=== PATIENT | female | born 1935 | race Caucasian/White ===

== ENCOUNTER 2019-11-18 16:59 | Emergency (ER) | payer MEDICARE, SELFPAY ==
[2019-11-18 17:06] VITALS: BP 174/88; PULSE 77; RESP 18; TEMP 36.8; O2SAT 93; BMI 33.6
--- NOTE | 2019-11-18 17:22 | CTR_ITS ---
PROCEDURE INFORMATION: Exam: CT Cervical Spine Without Contrast Exam date and time: 11/18/2019 5:38 PM Age: 84 years old Clinical indication: Neck pain; Additional info: Severe left sided neck pain, sudden onset TECHNIQUE: Imaging protocol: Computed tomography images of the cervical spine without contrast. Radiation optimization: All CT scans at this facility use at least one of these dose optimization techniques: automated exposure control; mA and/or kV adjustment per patient size (includes targeted exams where dose is matched to clinical indication); or iterative reconstruction. COMPARISON: No relevant prior studies available. FINDINGS: There is mild multilevel malalignment, likely secondary to degenerative changes. Height of cervical bodies appears within normal limits. Reversal of the lordosis may be due to muscle spasm. There are prominent multilevel degenerative changes in the cervical spine. There appears to be spinal canal narrowing. Further assessment cannot be made of the cervical spinal canal or its contents due to artifacts. No convincing acute fracure is demonstrated when allowing for the degenerative changes. Consider MRI of cervical spine for further assessment if clinically warranted, particularly for further assessment of the spinal canal and its contents, spinal cord, nerve roots, intervertebral disks, ligaments, other spinal soft tissues, bone edema, etc., if patient has no contraindication to MRI. There are prominent calcifications at each CCA bifurcation, consider further imaging to assess for carotid stenosis. There are rounded somewhat low-density lesions in bilateral thyroid lobes, largest is on left and measures about 1.6 cm. There is approximately 3 mm noncalcified nodule in right upper lobe. Followup according to Fleischner Society guidelines is advised. CT/CT cervical spin wo con* 98417 IMPRESSION: No convincing acute fracture is demonstrated when allowing for prominent degenerative changes as discussed above. There are rounded somewhat low-density lesions in bilateral thyroid lobes, largest is on left and measures about 1.6 cm. Nonemergent thyroid ultrasound is advised for further assessment. Other findings as discussed above. Total DLP: 790.88 mGy-cm Radiation Dose CTDIVOL = (mGy): DLP = 790.88 (mGy-cm)
--- NOTE | 2019-11-18 17:38 | ED_ITS ---
HPI - Headache General: Chief Complaint: Headache Stated Complaint: neck pain Time Seen by Provider: 11/18/19 17:22 History of Present Illness: HPI Narrative: Patient states she woke up 2 days ago with neck pain that is progressively got worse hurts in her left neck trapezius area and now she has a headache along with that she is very active she is on for sure what happened her neck she does have a history of arthritis in her neck MD elicited complaint: headache and other (Neck pain) Onset description: on awakening Location: left Severity: moderate Quality & Timing: aching (Spasm), sharp and intermittent Exacerbating factors: movement of head/neck Context: tick bite (History Lyme disease 3 years ago) Associated symptoms: Reports no associated symptoms; Deny chest pain, fever(s), nausea, rash or vomiting Treatments prior to arrival: none Review of Systems Const: Denies: fever(s), chills or body aches Eyes: Denies: change in vision or blurry vision ENMT: Denies: throat pain or nasal congestion Card: Denies: chest pain or dyspnea on exertion Resp: Denies: dyspnea, productive cough or non-productive cough GI: Denies: abdominal pain, nausea or vomiting Musc: Reports: neck pain; Denies: extremity pain Skin/Breast: Denies: rash Neuro: Reports: headache(s) Psych: Denies: anxiety or depression Pipo/Lymph: Denies: easy bruising PFSH ED PFSH: Social History Smoking and tobacco status: never smoked Physical Exam Const: COMMON NORMALS: patient oriented x3 HENMT: COMMON NORMALS: normocephalic HEAD & SCALP: normal to inspection and normocephalic FACE & SINUS: normal facial exam Eye: COMMON NORMALS: conjunctivae normal GENERAL EYE: appearance normal, tony th eyes and all related structures CONJUNCTIVA: Yes conjunctivae normal Neck/C-Spine: COMMON NORMALS: no JVD; negative for full ROM OTHER: Patient has tenderness to the left trans-PCS from the base of the neck toward her left shoulder does not hurt down to the lower part of the shoulder blade is tight patient has limited range of motion due to pain Chest: COMMONS NORMALS: normal inspection of the chest Resp: COMMON NORMALS: normal respiratory effort and clear to auscultation bilaterally AUSCULTATION: clear to auscultation bilaterally Cardio: COMMON NORMALS: no JVD, regular rate and regular rhythm RATE: regular rate RHYTHM: regular rhythm GI: COMMON NORMALS: Normal to inspection, nondistended, normoactive bowel soun ds present Extremity: COMMON NORMALS: normal to inspection and full ROM Neuro: COMMON NORMALS: patient oriented x3 Course Vital Signs: Vital signs: Vital Signs Temperature 98.3 F 11/18/19 17:06 Pulse Rate 70 11/18/19 17:47 Respiratory Rate 14 11/18/19 17:47 Blood Pressure 169/84 11/18/19 17:47 Pulse Oximetry 95 11/18/19 17:47 MDM - Headache MDM Narrative: Medical decision making narrative: Patient neck pain is improved not completely gone she is able to put her hand behind her head and pull up her head to the sitting position with minimal pain now and she cannot do this before Discharge Plan Discharge Patient Disposition: Home, Self-Care Clinical Impression: Neck pain, chronic Condition: Stable Prescriptions: New tizanidine 2 mg capsule 2 mg PO Q8H PRN (Reason: muscle spasticity) Qty: 14 RF: 0 prednisone 10 mg tablet 10 mg PO DAILY 7 Days Qty: 7 RF: 0 Discharge Orders: Discharge Order (Routine); Ordered 11/18/19 Ordered By: Nils Gamble Referrals: KAREY [Other] Jeff Allen [Primary Care Provider] - Discharge Diet: Usual diet Discharge Activity: Increase activity as tolerated Patient Instructions: Osteoarthritis (ED) Activity Restrictions/Additional Instructions: Follow-up with medical provider as directed. Take medications as prescribed. Return to the ER or your medical provider if condition worsens. Please read and understand discharge instructions. If any questions ask please. Follow-up with Dr. 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
[2019-11-18] MEDS: orphenadrine 30 mg/mL Inj 2 mL 60 MG IM (17:40)
[2019-11-18] MEDS: ketorolac 60 mg/2 mL INJ IM (17:40)
[2019-11-18 17:47] VITALS: BP 169/84; PULSE 70; RESP 14; O2SAT 95
[2019-11-18 18:55] VITALS: BP 153/84; PULSE 62; RESP 16; O2SAT 97
== END 2019-11-18 19:04 | disposition home or self-care (01) ==
PROVIDERS: Emergency Provider Nurse Practitioner Family; PCP Physician Assistant
DX: G89.29 Other chronic pain (principal); M54.2 Cervicalgia
CPT/HCPCS: 12345; 72125; 96372; 99281; 99283; J1885; J2360

== ENCOUNTER → 2020-03-25 15:22 | Outpatient (BNVA) | payer MEDICARE, SELFPAY | PROVIDERS: PCP Physician Assistant; Visit Provider Nurse Practitioner Family | DX: N39.0 Urinary tract infection, site not specified (principal) | CPT/HCPCS: 81001 ==

== ENCOUNTER 2021-01-27 13:54 | Outpatient (CLI) | payer MEDICARE, SELFPAY ==
--- NOTE | 2021-01-27 14:09 | XR_ITS ---
WS: [id number] PROCEDURE: XR chest 2V* [id number] CLINICAL INFORMATION: COUGH COMPARISON: FINDINGS: Heart: Cardiomegaly. Aortic calcification. Tortuous thoracic aorta. Lungs: Moderate chronic emphysematous changes. No acute pulmonary infiltrates. No focal pneumonia. Bones: Mild thoracic curve. Moderate thoracic kyphosis. Chronic anterior wedging in the mid thoracic spine. Vascular calcification. XR/XR chest 2V* [id number] IMPRESSION: 1. Moderate chronic emphysematous changes. No acute pulmonary infiltrates. No focal pneumonia. 2. Stable cardiomegaly. 3. Moderate thoracic kyphosis with chronic anterior wedging in the mid thoraci c spine.
== END 2021-01-27 13:55 | disposition home or self-care (01) ==
PROVIDERS: Visit Provider Specialist
DX: R05 Cough (principal); I51.7 Cardiomegaly; M40.204 Unspecified kyphosis, thoracic region
CPT/HCPCS: 71046

== ENCOUNTER 2021-03-16 13:06 | Outpatient (CLI) | payer MEDICARE, SELFPAY ==
[2021-03-16 14:02] LABS: Basophils % 0.2 %; Eosinophils # 0.1 10^3/uL (0.0-0.8); Eosinophils % 1.9 %; Hematocrit 36.4 % (37.0-47.0); Hemoglobin 11.8 g/dL (11.5-15.3); Lymphocytes # 1.9 10^3/uL (0.8-4.8); Lymphocytes % 40.5 %; Mean Corpuscular HGB Conc 32.4 g/dL (30.0-36.0); Mean Corpuscular Hemoglobin 32.5 pg (28.0-34.0); Mean Corpuscular Volume 100.3 fl (81-99); Monocytes # 0.7 10^3/uL (0.2-0.9); Monocytes % 15.8 %; Neutrophils # 1.93 10^3/uL (1.8-7.7); Neutrophils % 41.4 %; Nucleated Red Blood Cells % 0 %; Platelet Count 97 10^3/cmm (130-400); Red Blood Count 3.63 10^6/uL (4.1-5.3); Red Cell Distribution Width 12.9 % (12.1-15.1); White Blood Count 4.7 10^3/uL (4.0-10.0)
[2021-03-16 15:30] LABS: Slide Review Slide Review Perform
--- NOTE | 2021-03-16 17:19 | ONC CON_ITS ---
Dr. Birmingham New Patient Note Patient: Ritu Stoner Unit #: [id number]: 1935 Dicatated By: Chela Birmingham M.D.Date of Visit: Mar 16, 2021 Onc MED New Patient/Consult Referring Physician: Jeff Allen P.A.-C History of Present Illness: Mr. Ritu Stoner, is a 85-year-old female with a history of thrombocytopenia and mild anemia since 2016 when patient was admitted to hospital in ICU, at that time she was seen by Dr. 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 Her lab work-up done recently on December 27, 2020 showed iron 76, TIBC 178, iron saturation 43% ferritin 524 creatinine 1.10 otherwise CMP within normal limits white blood count 3.1 hemoglobin 11 g hematocrit 34 platelets 24,000, patient was referred to hematology clinic for evaluation Patient denied any night sweats, peripheral lymphadenopathy, abdominal fullness, weight loss, recurrent fever, patient denies any nosebleed or gum bleed, denies any particular ecchymosis denies any melena hematochezia or hemoptysis or hematemesis, denies any jaundice, denies any peripheral neuropathy/numbness,Denies any recent blood transfusion, Past Medical History: Ms. Stoner's medical history consists of anemia, ankylosing spondylitis, atrial fibrillation, benign proxysmal vertigo, cervicalgia, chronic cystitis, chronic pain, history of basal cell carcinoma left ear, history of Lyme disease, hypertension, hypokalemia, non toxic multinodular goiter, and Louis's disease. Past Surgical History: There is no documented surgical history. Medications: Aspirin 81 1 Tablet (of 81 mg) Tablet, enteric coated Oral daily, Atenolol 1 Tablet (of 100 mg) Oral at bedtime, Calcium 1 Tablet (of 600 mg) Oral daily, Cetirizine HCl 1 Tablet (of 10 mg) Oral daily, D3-1000 1 Tablet (of 25 mcg ) Oral daily, Daily Vitamin 1 Tablet Oral daily, Fish Oil 1 Tablet (of 435 mg) Capsule Oral daily, Fluticasone Furoate 1 [place](s) (of 27.5 mcg/spray) Suspension Nasal daily, Furosemide 1 Tablet (of 40 mg) Oral every am, Gabapentin 1 Tablet (of 100 mg) Capsule Oral daily, Lisinopril 1 Tablet (of 20 mg) Oral daily, Lovastatin 1 Tablet (of 20 mg) Oral daily, Omeprazole 1 Tablet (of 20 mg) Capsule Delayed Release Oral daily, Potassium Chloride 1 Tablet (of 20 meq) Pack Oral daily, Probiotic 1 Tablet Capsule Oral daily, sulfaSALAzine 2 Tablet (of 500 mg) Tablet, enteric coated Oral every am, tiZANidine HCl 1 Tablet (of 2 mg) Oral q 8 hours PRN Allergies: Morphine Sulfate Social History: Ms. Stoner is . Family History: There is no documented family history. Review Of Symptoms: Review of Systems is not available for this patient. Vital Signs: Performed on Mar 16, 2021 15:42: 5, 0, 0.00, 0.00 sq.m, 94 % (LOW), 69 /min, 18 /min, 148/71 mm(hg) (HIGH), 97.8 F (LOW), and 185.8 lbs (HIGH). Performance Status: 1 - No physically strenuous activity, but ambulatory and able to carry out light or sedentary work (e.g. office work, light house work). (ECOG) Physical Examination: ENMT - No mouth sores, no thrush, no jaundice, no cervical lymphadenopathy, Respiratory - Poor air entry otherwise clear, Cardiovascular - Regular rate and rhythm of heart, Abdomen - Soft, bowel sounds present, Extremities - 2+ edema bilaterally. Lab/Imaging: Most recent lab results are not available for this patient. Impression: Thrombocytopenia, etiology unclear but appears multifactorial, could be due to medication like sulfasalazine, furosemide or mild ITP or considering her age underlying myelodysplasia cannot be ruled out Mild anemia, normocytic, could be multifactorial including anemia of chronic disease, arthritis/ankylosing spondylitis or considering her age underlying myelodysplasia cannot be ruled out, could be nutritional but her iron studies within normal range, History of hemorrhoids, lower extremity edema on diuretics Lasix and potassium supplement Arthritis/ankylosing spondylitis History of Lyme disease Plan: Discussed with patient regarding her labs done today showed white blood count 4.7 hemoglobin 11.8 g hematocrit 36.4 platelets 97,000 MCV 100.3 ANC 1930 Clinically, patient doing well with no new signs symptom, her repeat CBC done today showed significant improvement in her platelet count now 97,000 compared to 24,000 in December 2020, her hemoglobin has also improved, now 11.8 g which is within normal range compared to 11 g on December 27, 2020 and resolution of mild leukopenia. Etiology of her fluctuating thrombocytopenia could be multifactorial including, self-limiting ITP, or medications like furosemide,, sulfasalazine, or considering her age underlying myelodysplasia, at this point, will monitor her CBC and check a B12, folate level and TSH if low, will supplement She will return to clinic in 1 month with CBC, patient was advised in case there is evidence of gross bleeding she need to call us or go to hospital. Signed By: Chela Birmingham M.D. <<Signature on File>>
[2021-03-16 18:20] LABS: Folate Level 15.8 ng/mL (4.8-37.3)
[2021-03-16 18:24] LABS: Thyroid Stimulating Hormone 2.16 uIU/mL (0.27-4.20); Vitamin B12 594 pg/mL (232-1245)
== END 2021-03-16 13:07 | disposition home or self-care (01) ==
LOC: ONCMED 13:10
PROVIDERS: PCP Physician Assistant; Visit Provider Internal Medicine Hematology & Oncology
DX: D69.6 Thrombocytopenia, unspecified (principal); D64.9 Anemia, unspecified; Z87.19 Personal history of other diseases of the digestive system; R60.0 Localized edema; M45.9 Ankylosing spondylitis of unspecified sites in spine; Z86.19 Personal history of other infectious and parasitic diseases; Z79.899 Other long term (current) drug therapy
CPT/HCPCS: 36415; 82607; 82746; 84443; 85025; 99205

== ENCOUNTER → 2021-03-24 15:32 | Outpatient (BNVA) | payer MEDICARE, SELFPAY | PROVIDERS: PCP Physician Assistant; Visit Provider Nurse Practitioner Family | DX: N39.0 Urinary tract infection, site not specified (principal) | CPT/HCPCS: 81003 ==

== ENCOUNTER 2021-04-26 11:33 | Outpatient (CLI) | payer MEDICARE, SELFPAY ==
[2021-04-26 12:40] LABS: Basophils % 0.5 %; Hematocrit 37.4 % (37.0-47.0); Hemoglobin 11.9 g/dL (11.5-15.3); Lymphocytes # 1.4 10^3/uL (0.8-4.8); Lymphocytes % 35.3 %; Mean Corpuscular HGB Conc 31.8 g/dL (30.0-36.0); Mean Corpuscular Hemoglobin 30.4 pg (28.0-34.0); Mean Corpuscular Volume 95.7 fl (81-99); Mean Platelet Volume 10.5 fL (7.4-10.4); Monocytes # 0.7 10^3/uL (0.2-0.9); Monocytes % 17.2 %; Neutrophils # 1.87 10^3/uL (1.8-7.7); Neutrophils % 45.8 %; Nucleated Red Blood Cells % 0 %; Platelet Count 100 10^3/cmm (130-400); Red Blood Count 3.91 10^6/uL (4.1-5.3); Red Cell Distribution Width 12.4 % (12.1-15.1); White Blood Count 4.1 10^3/uL (4.0-10.0)
--- NOTE | 2021-04-26 17:47 | ONC FU_ITS ---
Dr. Birmingham follow up note Patient: Ritu Stoner Unit #: [id number]: 1935 Dicatated By: Chela Birmingham M.D.Date of Visit:Apr 26, 2021 Onc Med Follow-up/Prog Note History of Present Illness: Mr. 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 Her lab work-up done recently on December 27, 2020 showed iron 76, TIBC 178, iron saturation 43% ferritin 524 creatinine 1.10 otherwise CMP within normal limits white blood count 3.1 hemoglobin 11 g hematocrit 34 platelets 24,000, patient was referred to hematology clinic for evaluation Came for follow-up, denies any specific complaints, no fever chills, no nausea or vomiting, no diarrhea constipation, no melena hematochezia, no hemoptysis hematemesis, no petechia or ecchymosis, no nosebleed or gum bleed Medications: Aspirin 81 1 Tablet (of 81 mg) Tablet, enteric coated Oral daily, Atenolol 1 Tablet (of 100 mg) Oral at bedtime, Calcium 1 Tablet (of 600 mg) Oral daily, Cetirizine HCl 1 Tablet (of 10 mg) Oral daily, D3-1000 1 Tablet (of 25 mcg ) Oral daily, Daily Vitamin 1 Tablet Oral daily, Fish Oil 1 Tablet (of 435 mg) Capsule Oral daily, Fluticasone Furoate 1 [place](s) (of 27.5 mcg/spray) Suspension Nasal daily, Furosemide 1 Tablet (of 40 mg) Oral every am, Gabapentin 1 Tablet (of 100 mg) Capsule Oral daily, Lisinopril 1 Tablet (of 20 mg) Oral daily, Lovastatin 1 Tablet (of 20 mg) Oral daily, Omeprazole 1 Tablet (of 20 mg) Capsule Delayed Release Oral daily, Potassium Chloride 1 Tablet (of 20 meq) Pack Oral daily, Probiotic 1 Tablet Capsule Oral daily, sulfaSALAzine 2 Tablet (of 500 mg) Tablet, enteric coated Oral every am, tiZANidine HCl 1 Tablet (of 2 mg) Oral q 8 hours PRN Allergies: Morphine Sulfate Review of Systems: Review of Systems is not available for this patient. Vital Signs: Performed on Apr 26, 2021 16:05 Weight - 183.6 lbs (LOW) BSA - sq.m BMI - 0.00 (LOW) Temperature - 97.6 F (LOW) Pulse - 66 /min Respiration - 18 /min BP - 165/77 mm(hg) (HIGH) O2 Sat - 93 % (LOW) Pain - 5 Fatigue - 5 Performance Status: 0 - Fully active, able to carry on all predisease activities without restrictions. (ECOG) Physical Examination: ENMT - No mouth sores, no thrush, no jaundice, Respiratory - Lungs are clear to auscultation, Cardiovascular - Regular rate and rhythm of heart, Abdomen - Soft, bowel sounds present, Extremities - No visible edema. Lab/Imaging: Most recent lab results are not available for this patient. Impression: Thrombocytopenia, etiology unclear but appears multifactorial, could be due to medication like sulfasalazine, furosemide or mild ITP or considering her age underlying myelodysplasia cannot be ruled out Mild anemia, normocytic, could be multifactorial including anemia of chronic disease, arthritis/ankylosing spondylitis or considering her age underlying myelodysplasia cannot be ruled out, could be nutritional but her iron studies within normal range, History of hemorrhoids, lower extremity edema on diuretics Lasix and potassium supplement Arthritis/ankylosing spondylitis History of Lyme disease Plan: Discussed with patient regarding her labs white blood count 4.1 hemoglobin 11.9 g medically 27.4 platelets 100,000 compared to 97,000 previously and her vitamin B12 594 TSH 2.16 folic acid 15.8 Clinically, patient doing well with no signs symptom suggestive of gross bleeding, her follow-up lab work shows mild thrombocytopenia but stable, will continue to monitor and she will return to clinic in 3 months with CBC, patient was advised in case of any evidence of gross bleeding she need to call us or go to hospital. Signed By: Chela Birmingham M.D. <<Signature on File>>
== END 2021-04-26 11:34 | disposition home or self-care (01) ==
LOC: ONCMED 11:38
PROVIDERS: PCP Physician Assistant; Visit Provider Internal Medicine Hematology & Oncology
DX: D69.6 Thrombocytopenia, unspecified (principal); D64.9 Anemia, unspecified; R60.0 Localized edema; M45.0 Ankylosing spondylitis of multiple sites in spine; Z86.2 Personal history of diseases of the blood and blood-forming organs and certain disorders involving the immune mechanism; Z86.19 Personal history of other infectious and parasitic diseases; Z79.899 Other long term (current) drug therapy
CPT/HCPCS: 36415; 85025; 99214

== ENCOUNTER 2021-08-10 10:21 | Emergency (ER) | payer MEDICARE, SELFPAY ==
[2021-08-10 10:25] VITALS: BP 139/70; PULSE 71; RESP 18; TEMP 36.6; O2SAT 97; BMI 31.8
--- NOTE | 2021-08-10 10:30 | XR_ITS ---
WS: [id number] CERVICAL SPINE 2 VIEWS HISTORY: pain COMPARISON: Cervical spine CT 11/18/2019. Very difficult evaluation of the cervical spine. Due to patient's immobility and pain. Patient's head is tilted to the RIGHT. There is diffuse osteopenia. Disc spaces are narrowed throughout. No fractur e identified. The odontoid and the lateral masses incompletely visualized. Facet joints are narrowed. No prevertebral soft tissue edema. XR/XR cervical spine 3V* [id number] IMPRESSION: 1. Extremely limited evaluation cervical spine due to patient's orientation an d pain. 2. Diffuse osteopenia. 3. C1 and C2 are incompletely evaluated. If there is history of trauma or conc jong for fracture cervical spine CT is recommended.
--- NOTE | 2021-08-10 10:30 | ED_ITS ---
HPI - Neck Pain/Injury General: Chief Complaint: General Medical Stated Complaint: NECK AND UPPER BACK PAIN Time Seen by Provider: 08/10/21 10:22 Source: patient Mode of arrival: EMS Limitations: no limitations History of Present Illness: 86-year-old female comes in complaining of pain in her neck pain shooting down her right arm into her hands been going on for a couple of months now is progressively worsening. She has a history of ankylosing spondylolysis but not has not had any previous imaging or surgery to her neck. This is been completely atraumatic and is progressively worsened over time which she cannot recall any precipitating acts. At various times of the wax and wane but overall generally has been worsening she comes in today because it has become more uncomfortable and she is just not been able to tolerate it at this point. No other symptoms. MD complaint: neck pain Onset (ago): month(s) (2) Place: home Radiation: right upper extremity Severity: moderate Quality: sharp Duration: intermittent and progressively worsening Relieving factors: none Exacerbating factors: none Associated symptoms: Reports weakness; Denies dysphagia, difficulty walking, dizziness, fevers/chills, headache(s), nausea, swollen glands or tingling Treatments prior to arrival: none Review of Systems Const: Denies: fever(s), chills, body aches, change in appetite, fatigue or malaise ENMT: Denies: throat pain, ear or mastoid pain, nasal discharge or nasal congestion Card: Denies: chest pain, edema, dyspnea on exertion or orthopnea Resp: Denies: dyspnea, productive cough or non-productive cough GI: Denies: nausea or dysphagia : Denies: flank pain, difficulty voiding, dysuria, urinary frequency or urinary urgency Skin/Breast: Denies: rash or pruritus Neuro: Denies: headache(s), difficulty walking or dizziness PFSH ED PFSH: Medical History Recurrent UTI Urgency incontinence Surgical History H/O dilation and curettage H/O knee surgery Family History Family/Other CAD (coronary artery disease) Hypertension Social History Smoking and tobacco status: never smoked Alcohol intake: never Current occupational status: retired Physical Exam Const: COMMON NORMALS: no acute distress GENERAL APPEARANCE: cooperative and comfortable ORIENTATION/CONSCIOUSNESS: Yes awake, Yes oriented to person, Yes oriented to place and Yes oriented to time HENMT: COMMON NORMALS: normocephalic, atraumatic and hearing grossly normal bilaterally HEAD & SCALP: normocephalic and atraumatic Neck/C-Spine: COMMON NORMALS: no lymphadenopathy, supple and no JVD Resp: COMMON NORMALS: normal respiratory effort, No retractions, No use of accessory muscles and clear to auscultation bilaterally AUSCULTATION: clear to auscultation bilaterally Cardio: COMMON NORMALS: no JVD, regular rate, regular rhythm and No murmurs present (Cardio) RATE: regular rate RHYTHM: regular rhythm GI: COMMON NORMALS: Soft to palpation and No hepatosplenomegaly present AUSCULTATION: Yes normoactive bowel sounds PALPATION: Yes Soft to palpation, No Tenderness to palpation present (GI), No Guarding due to palpation present (GI) and Yes No hepatosplenomegaly present Extremity: COMMON NORMALS: normal to inspection, capillary refill normal, no clubbing, cyanosis or edema, no calf tenderness and no pedal edema OTHER: Triceps biceps and brachioradialis all significantly diminished on the right. Neurovascularly intact at this time still has sensation to sharp and light touch. 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 Neuro: SENSORIUM/ORIENTATION: Yes oriented to person, Yes oriented to place and Yes oriented to time Skin: COMMON NORMALS: no rashes or lesions noted GENERAL SKIN EXAM: no rashes or lesions noted Course Vital Signs: Vital signs: Vital Signs Temperature 97.9 F 08/10/21 10:25 Pulse Rate 70 08/10/21 13:48 Respiratory Rate 16 08/10/21 13:48 Blood Pressure 113/53 08/10/21 13:48 Pulse Oximetry 93 08/10/21 13:48 MDM - Neck Pain/Injury Medical Decision Making Chronic issue at this point C-spine films unremarkable other than generalized diffuse osteopenia and arthritic changes. There is no evidence of trauma. At this point the best option would be for the patient get an MRI of her neck and then referral to spine surgery. We will make arrangements through case management. Discharge home for today see meds below. Medical Records I reviewed the patient's medical records. Lab Data I reviewed the patient's lab results. Radiology Impressions Cervical Spine X-Ray 08/10/21 10:30 IMPRESSION: 1. Extremely limited evaluation cervical spine due to patient's orientation and pain. 2. Diffuse osteopenia. 3. C1 and C2 are incompletely evaluated. If there is history of trauma or concern for fracture cervical spine CT is recommended. Discharge Plan Discharge Patient Disposition: Home Clinical Impression: Cervical radiculopathy Condition: Stable Prescriptions: New hydrocodone-acetaminophen 5-325 mg tablet 1 tab PO Q6H PRN (Reason: pain) Qty: 20 0RF prednisone 20 mg tablet 20 mg PO TID Qty: 15 0RF Rx Instructions: 1 p.o. 3 times daily x3 days, 1 p.o. twice daily x2 days, 1 p.o. daily x2 days Lyrica 75 mg capsule 75 mg PO BID Qty: 60 0RF tizanidine 2 mg tablet 2 mg PO Q8H PRN (Reason: muscle spasticity) Qty: 20 0RF No Action doxycycline hyclate 100 mg tablet 100 mg PO BID Qty: 30 2RF Multiple Vitamins Tablet 1 tab PO DAILY 0RF furosemide 40 mg Tablet 40 mg PO DAILY 0RF sulfasalazine 500 mg tablet 500 mg PO BID 0RF atenolol 100 mg Tablet 100 mg PO DAILY 0RF lisinopril 20 mg Tablet 20 mg PO DAILY 0RF Calcium 600 600 mg calcium (1,500 mg) Tablet 600 mg PO DAILY 0RF potassium chloride 20 mEq tablet,ER particles/crystals 20 meq PO DAILY 0RF amlodipine 10 mg tablet 10 mg PO DAILY 0RF omeprazole 20 mg Capsule,Delayed Release(Dr/Ec) 20 mg PO DAILY 0RF lovastatin 20 mg tablet 20 mg PO DAILY 0RF Vitamin D3 25 mcg (1,000 unit) Tablet 25 mcg PO DAILY 0RF Probiotic 10 billion cell Capsule See Rx Instructions .ROUTE .COMPLEX 0RF Rx Instructions: 10 BILLION CELL TAB, TAKE ONE DAILY. Mathew Chewable Aspirin 81 mg Tablet,Chewable 81 mg PO DAILY 0RF Rx Instructions: THE LIST ALSO CONTAINS MAGNESIUM 50 MG, POTASSIUM 80 MG, AND I CANNOT FIND THOSE DOSES. omega-3 fatty acids-fish oil 300-1,000 mg Capsule 1 cap PO DAILY 0RF cetirizine 10 mg tablet 10 mg PO DAILY 0RF Discharge Orders: Discharge ED (Routine); Ordered 08/10/21 Ordered By: Sergio Meehan Referrals: Jeff Allen [Referring] - Patient Instructions: Opioid Safety Activity Restrictions/Additional Instructions: Case management make arrangements for an MRI of the neck and follow-up with orthopedic spine surgery. 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
[2021-08-10] MEDS: ondansetron 2 mg/ML SDV 2 mL 4 MG IVP (11:47)
[2021-08-10] MEDS: ketorolac 30 mg/mL INJ IM (11:47)
[2021-08-10 11:48] VITALS: RESP 18; O2SAT 97
[2021-08-10] MEDS: morphine 4 mg/mL SDV 1 mL 6 MG IM (11:48)
[2021-08-10] MEDS: orphenadrine 30 mg/mL Inj 2 mL 60 MG IM (11:48)
[2021-08-10 12:17] VITALS: RESP 17; O2SAT 97
[2021-08-10] MEDS: HYDROmorphone 1 mg/mL INJ 1 mL IVP (12:17)
[2021-08-10 13:48] VITALS: BP 113/53; PULSE 70; RESP 16; O2SAT 93
--- NOTE | 2021-08-10 13:55 | DCPLANNER ---
Addendum entered by Thao Yang 10/14/21 19:35: late entry: Patient had a follow up appointment scheduled with ortho - patient did attend appointment. construction project manager was informed that patients insurance denied the request for the MRI ordered out of the ER. construction project manager tried to call patient to inform patient of this but was unable to speak with patient at this time. Addendum entered by Thao Yang 09/14/21 14:50: Patient has a follow up appointment scheduled for September at 3:[address] Frances at ortho. Clinic will call patient with appointment information. Original Note: construction project manager had message to schedule an outpatient MRI for patient. construction project manager emailed signed order to Rhonda at centralized scheduling, who will call patient with appointment information.
== END 2021-08-10 14:04 | disposition home or self-care (01) ==
PROVIDERS: Emergency Provider Family Medicine
DX: M54.12 Radiculopathy, cervical region (principal)
CPT/HCPCS: 72040; 96372; 96374; 96375; 99284; J1170; J1885; J2270; J2360; J2405

== ENCOUNTER → 2021-09-16 14:47 | Outpatient (BNVA) | payer MEDICARE, SELFPAY | PROVIDERS: Visit Provider Orthopaedic Surgery | DX: M54.2 Cervicalgia (principal) | CPT/HCPCS: 72050; 99203; 99204 ==

== ENCOUNTER 2021-11-18 13:03 | Outpatient (CLI) | payer MEDICARE, SELFPAY ==
--- NOTE | 2021-11-18 11:00 | MR_ITS ---
WS: [id number] MRI CERVICAL SPINE NONCONTRAST TECHNIQUE: Sagittal T1, T2 and STIR imaging. Axial T2, gradient, and fiesta imaging. CLINICAL INFORMATION: neck pain COMPARISON: CT cervical November 18, 2019. MRI 2009. FINDINGS: Straightening of the normal cervical lordosis. Moderate spondylitic changes. Disc space narrowing wor se at C4-C5 C5-C6 and C6-C7. Cord signal is normal. No high-grade central canal stenosis. Alignment i s unchanged since the prior CT. Degenerative disc disease has progressed compared to 2009. Disc space narrowing at C4-C6 has progressed. C2-C3: Mild disc osteophytic ridging. Spinal canal and foramen are patent. C3-C4: Slight anterolisthesis C3 on C4. Disc osteophytic ridging. Mild to moderate LEFT facet arthrop athy. Mild LEFT and no RIGHT foraminal narrowing. Spinal canal is patent. C4-C5: Mild disc osteophytic ridging. Mild RIGHT and no LEFT foraminal narrowing. Mild facet arthropa thy. Spinal canal is patent. C5-C6: Disc osteophyte complex with endplate ridging. Moderate LEFT and no significant RIGHT foramina l narrowing. Moderate facet arthropathy. Spinal canal is patent. C6-C7: Disc osteophyte complex with endplate ridging. Mild LEFT and no significant RIGHT foraminal na rrowing. Spinal canal is patent. Mild facet arthropathy. C7-T1: Mild LEFT and no significant RIGHT foraminal narrowing. Spinal canal is patent. Bilateral thyr oid nodules LEFT greater than RIGHT. Lobulated LEFT thyroid nodule measuring 2.2 CM. This appears sta ble since the prior CT. Small vessel changes in the sujatha. 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 MR/MR cervical spin wo con* [id number] IMPRESSION: 1. Straightening of the normal cervical lordosis with moderate spondylitic erik nges. 2. Slight anterolisthesis C3 on C4. 3. Disc space narrowing worse at C4-C5 C5-C6 and C6-C7 with osteophytic ridgin g. Spinal canal remains patent. 4. Moderate LEFT C5-C6 bony foraminal narrowing. Mild LEFT C6-C7 bony foramina l narrowing. 5. Moderate facet arthropathy C4-C6. 6. Bilateral thyroid nodules LEFT greater than RIGHT appear stable since the p rior CT November 18, 2019.
== END 2021-11-18 13:04 | disposition home or self-care (01) ==
LOC: RAD 13:05
PROVIDERS: Visit Provider Orthopaedic Surgery
DX: M54.2 Cervicalgia (principal)
CPT/HCPCS: 72141